=== PATIENT | male | born 1950 | race Caucasian/White ===

== ENCOUNTER → 2021-07-03 | Outpatient (CLI) | payer BC ==
[~2021-07-03] MED LIST: AMLODIPINE BESY10 MG PO; ASA81BEC PO; CARVEDILOL25 MG PO; CLONAZEPAM 0.50.5 M1 PO; LEVOTHYROXINE50 MCG PO; LISINOPRIL10 MG PO; ROSUVASTATIN CA20 MG PO
[2021-07-03 12:01] LABS: HEMATOCRIT 42.7 % (42.0-52.0); HEMOGLOBIN 14.4 gm/dL (14.0-18.0); MCH 30.9 pg (26.0-34.0); MCHC 33.8 g/dL (28.0-37.0); MCV 91.4 fL (80.0-100.0); RBC 4.67 mil/uL (4.50-6.00); RDW 13.1 % (10.5-14.5); WBC 6.7 thou/uL (4.0-11.0)
[2021-07-03 12:06] LABS: URINE BILIRUBIN NEGATIVE (Negative); URINE BLOOD NEGATIVE (Negative); URINE CLARITY CLEAR; URINE COLOR YELLOW; URINE GLUCOSE-RANDOM* NEGATIVE (Negative); URINE KETONES NEGATIVE (Negative); URINE LEUKOCYTES-REFLEX NEGATIVE (Negative); URINE NITRITE-REFLEX NEGATIVE (Negative); URINE PROTEIN (DIPSTICK) 1+ (Negative); URINE SPECIFIC GRAVITY 1.025 (1.005-1.035)
[2021-07-03 12:07] LABS: ALBUMIN 3.8 g/dL (3.4-5.0); CALCIUM 9.2 mg/dL (8.5-10.1); CREATININE 1.2 mg/dL (0.7-1.3); POTASSIUM 4.4 mmol/L (3.5-5.1)
[2021-07-03 12:19] LABS: BACTERIA-REFLEX 1-9 Few /HPF (None Seen); CASTS None Seen /LPF (None Seen); CRYSTALS None Seen /LPF (None Seen); SQUAMOUS 0-3 Few /LPF (0-3); URINE RBC None Seen /HPF (NONE SEEN); URINE WBC-REFLEX 0-5 Rare /HPF (0-5)
[2021-07-03 12:39] LABS: INR 0.98; PROTIME 10.7 Seconds (10.5-12.1)
--- NOTE | 2021-07-04 08:37 | EKG ---
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 : 1950 Requested By: Kit Meade Order Number: [id number] : Cong Cavazos Measurements Intervals [place] Rate: 61 P: 44 IA: 171 QRS: 5 QRSD: 93 T: 24 QT: 387 QTc: 390 Interpretive Statements Sinus rhythm Probable left atrial enlargement Borderline low voltage, extremity leads No previous ECG available for comparison Electronically Signed On 07-04-2021 8:37:28 [employer] by Cong Cavazos [email or web address] <ELECTRONICALLY SIGNED> By: Cong Cavazos MD, [facility] 07/04/21 0837 [id number] Cong Cavazos MD, FACC /EPI
== END ==
LOC: PAC 07-02 14:29
PROVIDERS: ATTEND Orthopaedic Surgery
DX: M17.12 Unilateral primary osteoarthritis, left knee (principal); I10 Essential (primary) hypertension

== ENCOUNTER 2021-07-11 07:03 | Observation (INO) | payer BC ==
[~2021-07-11] VITALS: Ht 170.2 cm; Wt 76.2 kg
[2021-07-11 08:05] VITALS: BP 139/69
[2021-07-11 14:45] VITALS: BP 124/67
--- NOTE | 2021-07-11 15:02 | NUR ---
Patient transferred to unit from PACU. Pain controlled. Dressing c/d/i. RONNY and SCDs in place. IVF infusing. 2L O2. Pt working with PT this afternoon. Family at bedside. Call light within reach. Fall precautions in place. Will continue to monitor.
[2021-07-11 20:43] VITALS: BP 130/48
--- NOTE | 2021-07-12 01:09 | NUR ---
PT DENIED PAIN SO FAR.PT REF THE SCHEDULED MORPHINE BC IT MAKES HIM HALLUCINATE.PT WOULD PREFER TO TAKE TYLENOL INSTEAD.RONNY HOSE AND POLAR PACK IN PLACE.PT CONT ON IVF AND IV ABX ORDERED.CALL LIGHT WITHIN REACH.
[2021-07-12 07:42] VITALS: BP 148/68
[2021-07-12 08:19] VITALS: BP 146/72
--- NOTE | 2021-07-12 08:59 | NUR ---
ASSUMED PT CARE THIS AM. PT HAS IV SITE ON L WRIST. PT IS ALERT & ORIENTED X4. PT REFUSED NARCOTICS AND WANTED TYLENOL ONLY TO MANAGE PAIN. PT IS ON ROOM AIR. PT HAS POLAR CARE, RADHA DRESSING, KNEE HIGH RONNY HOSES BILATERAL AND SCD. AWAITING FOR PHYSICAL THERAPY THIS AM. WILL CONTINUE TO MONITOR PT. FOLLOW POC.
--- NOTE | 2021-07-12 09:52 | O ---
[facility] [place] [address] OPERATIVE REPORT Name: VICK STEWARD Room #: 443-P [facility] [place]#: [id number] Admission: 07/11/21 Attend Phys: Kit Meade MD Discharge: Date of : 50 Report #: [id number] THIS REPORT FOR: cc: Marcie Scott,Marcie Barry,Kit Sorto MD ~ DATE OF SERVICE: 07/11/2021 PREOPERATIVE DIAGNOSIS: Left knee osteoarthritis. POSTOPERATIVE DIAGNOSIS: Left knee osteoarthritis. PROCEDURE: Left total knee arthroplasty using Navio robotic assistance. SURGEON: Kit Meade MD SUPERVISOR DENTAL LABORATORY: Fallon Lock PA-C. INDICATION FOR SUPERVISOR DENTAL LABORATORY: Throughout the case, extensive retraction, manipulation of the knee was required. This was afforded to me by my retail administrative assistant. ANESTHESIA: LMA with adductor canal block. IMPLANTS: A [employer] size 4 Journey II BCS cobalt chrome femur, size 3 tibia, size 11 constrained polyethylene and size 32 patella. TOURNIQUET TIME: 53 minutes. ESTIMATED BLOOD LOSS: 25 mL COMPLICATIONS: None. SPECIMENS: None. CONDITION UPON LEAVING THE OR: Stable. INDICATIONS FOR PROCEDURE: The patient is a 71-year-old gentleman with severe left knee osteoarthritis. He had failed conservative measures for this and after discussion with him, he elected for left total knee arthroplasty. DESCRIPTION OF PROCEDURE: Risks, benefits, alternatives, complications were discussed in detail with the patient including, but not limited to risk of anesthesia, risk of damage to nerves, arteries, blood vessels, risk for infection, bleeding, risk for continued knee pain, need for reoperation. Informed consent was obtained from the patient. Left knee was appropriately marked in the preoperative holding area. IV Ancef was given for preoperative [address] [address] OPERATIVE REPORT Name: VICK STEWARD Room #: 443-P [facility] [place]#: [id number] Admission: 07/11/21 Attend Phys: Kti Meade MD Discharge: Date of : 50 Report #: [id number] antibiotics. He was brought to the operating room and placed in the supine position on the operating table. LMA anesthesia was induced without complication. Tourniquet was placed on the left thigh. Left lower extremity was prepped and draped in normal sterile fashion. Timeout was performed properly identifying the patient and procedure as well as the instrumentation and implants. All in the operating room in agreement. Left lower extremity was exsanguinated and tourniquet inflated. Tourniquet time was 53 minutes. Standard midline approach to the knee was made with 10 blade through the skin. Dissection was taken down sharply to the fascia and deep flaps were developed medially and laterally. Fresh 10 blade was used to make a medial parapatellar arthrotomy and the knee was inspected. There were severe medial compartment osteoarthritis with moderate lateral and patellofemoral compartment osteoarthritis. ACL and PCL were removed sharply. Reference pins were placed in the femur and the tibia. The knee was then digitally mapped using the [email or web address] robotic system. Intraoperative plan was made. We sized the size 4 femur, the size 3 tibia and a 10 spacer. After acceptance of the intraoperative plan, the distal femoral cut was made with Navio bur. Distal femoral cutting block was pinned in place and chamfer cuts were made. Attention was turned to the tibia. Remainder of the menisci removed with Bovie cautery. Tibial resection guide was pinned in place using Navio for placement and tibial resection was made. Flexion and extension gaps were checked and found to have good balance in flexion and extension both medially and laterally. Tibia was sized, found to be a size 3. Size 3 tibial trial was placed, pinned and punched. Size 4 femoral trial was placed and box cut was made. This was then trialed with a size 10 and then a size 11 polyethylene. Size 11 polyethylene demonstrated 1-1.5 mm of laxity medially throughout range of motion of the knee bilaterally. He did demonstrate up to 3 mm of laxity, it was felt make up for this with a constrained implant, 9 mm of bone was resected from the posterior surface of the patella and a size 32 patellar trial button was placed. Knee was taken through range of motion, found to be stable, found to have good patellar tracking. Trial components were removed. Bone ends were thoroughly irrigated with normal saline. A final size 3 tibia, size 4 Journey II BCS cobalt chrome femur and a size 32 patella were cemented in place using standard cementation techniques. While the cement cured, a periarticular injection consisting of morphine, ropivacaine, epinephrine, Toradol was placed around the knee joint capsule. After the cement cured, tourniquet was deflated. Hemostasis was obtained with Bovie cautery. A final size 11 constrained polyethylene was placed. A gram of vancomycin was placed deep in the joint. Fascia was closed with 0 Vicryl. Skin was closed with 2-0 Vicryl, 3-0 Monocryl. Dermabond and a RADHA dressing was applied. The patient tolerated this procedure well and went to recovery room under care of anesthesia postoperatively. <ELECTRONICALLY SIGNED> By: Kit Meade MD 07/12/21 [id number] Kit Meade MD /nt
[2021-07-12 09:56] VITALS: BP 148/68
== END 2021-07-12 11:00 | disposition home or self-care (01) ==
LOC: OR → 4S 14:32 → OR 15:09 → 4S 16:02 → OR 16:13 → 4S 07-12 11:00
PROVIDERS: ADMIT Orthopaedic Surgery; ATTEND Orthopaedic Surgery
DX: M17.12 Unilateral primary osteoarthritis, left knee (principal); Z20.822 Contact with and (suspected) exposure to COVID-19; I10 Essential (primary) hypertension; I25.10 Atherosclerotic heart disease of native coronary artery without angina pectoris; E78.5 Hyperlipidemia, unspecified; Z79.899 Other long term (current) drug therapy
CPT/HCPCS: 0055T; 27447; 50010; 50101; 50415; 50954; 51130; 51225; 53000; 53078; 54118; 56527; 56528; 57095; 57103; 57110; 57127; 57179; 58239; 59024; 62110; 62900; 64039; 70005